=== PATIENT | male | born 1980 | race Caucasian/White ===

== ENCOUNTER 2019-09-24 09:30 | Emergency (ER) | payer OTHER, SELFPAY ==
[2019-09-24 09:30] VITALS: BP 179/101; PULSE 96; RESP 18; TEMP 36.4; O2SAT 97; BMI 41.7
--- NOTE | 2019-09-24 09:47 | ED.VIS.GEN ---
History of Present Illness Chief Complaint: GI Bleed Informant: Patient Narrative: Patient presents to the emergency department for 24 hours of bright red blood with bowel movements. He states that the bowel movements have been firm. He has not had to strain. He states he has had a total of 5 each time has had bright red blood. He denies any abdominal pain or rectal pain. No rectal fullness. No history of diverticular disease are hemorrhoidal disease. He denies any medications. He has a known abdominal ventral hernia. No prior colonoscopy. Past Medical History - Allergies and Home Meds Allergies/Adverse Reactions: Allergies No Known Allergies Allergy (Verified 09/24/19 09:32) Primary Care Physician: Care Physician,No Primary [Primary Care Provider] - Smoking Status: Never smoker Review of Systems General: Denies: Chills, Fever, Sweats Eyes: Denies: Visual changes - bilaterally, Diplopia ENT: Denies: Rhinorrhea, Sore throat Cardiovascular: Denies: Chest pain, Palpitations Respiratory: Denies: Dyspnea, Cough, Dyspnea on exertion Gastrointestinal: Reports: Hematochezia. Denies: Abdominal pain, Nausea, Vomiting, Diarrhea, Constipation, Melena Genitourinary: Denies: Dysuria, Hematuria, Frequency Musculoskeletal: Denies: Back pain, Extremity Pain Skin: Denies: Rash, Wounds Neurological: Denies: Headache, Weakness, Numbness Physical Exam Vital Signs/Narrative: Vital Signs Temp Pulse Resp BP Pulse Ox 09/24/19 09:30 97.5 F L 96 18 179/101 H 97 Inital Vital Signs reviewed: Yes General: Well nourished, Well developed, No Acute Distress Head: Normocephalic, Atraumatic Eyes: Perrl, EOMI ENT: Moist mucous membranes, No rhinorrhea Neck: Supple, Nontender Cardiovascular: Regular rate, Regular rhythm, No murmurs Respiratory: No distress, CTA bilaterally, Chest nontender Abdomen: Soft, Nontender, Nondistended, Normal bowel sounds, Ventral hernia - No evidence of incarceration or strangulation Rectal: Nontender, - - There is no evidence of hemorrhoidal disease. No blood on the glove. No rectal fissure seen. Back: Nontender, Normal Inspection Extremities: Nontender, No edema Skin: Normal color, No rash Neurological: Alert, Oriented x3, Cranial nerves II-XII grossly intact, Normal Strength, Normal Sensation Psychological: Normal affect, Normal Mood Diagnostic/Tx/Re-eval - Medical Decision Making Patient's hemoglobin is stable at 15.7. He has no near syncopal or orthostatic symptoms. Lactic acid is normal. This is most likely a diverticular or internal hemorrhoidal bleed. I recommend a stool softener and avoidance of long-term sitting. He was advised he should have a colonoscopy but given the current situation that would be placed on hold. I will refer him to general surgery and they can assist him with his ventral hernia as well as the colonoscopy. Return if worsening or concerns and patient notes understanding. Patient is being discharged under pandemic conditions under declared global, national and state disaster activation, with limited medical resources, patient, community understands this. Results discussed in layman terms to patient satisfaction all questions answered in layman's terms. Patient understands importance of follow-up care as directed. The patient has been instructed to return to the ED immediately if new symptoms, problems, or questions occur. We mutually agreed with the plan of disposition. The patient understands that they may call or return any questions or concerns at any time. ED Disposition - Plan for ED Patient: Disposition: Home or Assisted Living Diagnosis: Lower GI bleed Instructions: ED Hematochezia Stable Referrals: Melchor Lopez MD [STAFF PHYSICIAN] - (call to arrange follow up ) Additional Instructions: Be advised that given the global pandemic and by order of the governor in the [place] Department of [employer] elective procedures such as elective hernia repair and elective colonoscopies are currently on hold. Please observe yourself and if you are worsening or have any concerns please return to the emergency department.
[2019-09-24 10:09] LABS: Absolute Lymphocyte Count 1.88 X10^3/uL (0.83-4.51); Absolute Neutrophil Count 6.4 X10^3/uL (2.0-7.7); Basophil# 0.05 X10^3/uL; Basophil% 0.6 % (0-1); Eosinophil# 0.18 X10^3/uL; Hematocrit 45.4 % (40-54); Hemoglobin 15.7 g/dL (13.0-16.5); Lymphocyte # 1.88 X10^3/ul (4.0); Lymphocyte % 20.8 % (19-41); Mean Corp Hgb Conc 34.6 g/dL (32-36); Mean Corpuscular Hgb 30.1 pg (27.0-32.0); Mean Corpuscular Volume 87.1 fL (80-94); Mean Platelet Vol. 10.1 fl (6.2-12.0); Monocyte# 0.55 X10^3/uL; Monocyte% 6.1 % (0-10); NRBC Flagged by Analyzer 0 % (0-5); Neutrophil # 6.35 X10^3/uL (2.7-7.7); Neutrophil % 69.9 % (47-70); Platelet Count 201 K/mm3 (150-450); RBC Distribution Width CV 12.8 % (11.6-14.6); RBC Distribution Width SD 40.5 fl (35.1-43.9); Red Blood Count 5.21 M/mm3 (4.6-6.2); White Blood Count 9.1 K/mm3 (4.4-11.0)
[2019-09-24 10:15] LABS: Prothrombin Time (Protime)PT. 12.3 SECONDS (11.7-14.9)
[2019-09-24 10:16] LABS: Partial Thromboplast Time 26.3 Seconds (24.1-36.2)
[2019-09-24 10:23] LABS: AST(SGOT) 24 U/L (15-37); Alanine Aminotransfer ALT/SGPT 64 U/L (16-61); Albumin, Serum 3.7 g/dL (3.2-5.0); Alkaline Phosphatase 69 U/L (45-117); Anion Gap 3 (5-15); BUN 16 mg/dL (7-18); BUN/Creat Ratio 13.8 RATIO (10-20); Calcium,Total 9.1 mg/dL (8.5-10.1); Chloride 110 mmol/L (98-107); Creatinine, Serum 1.16 mg/dL (0.70-1.30); EST Glomerular Filtration Rate 74 mL/min (>60); Est Glom Filt Rate - Afr Amer 89 mL/min (>60); Estimated Creatinine Clearance 89.26 ml/min; Globulin 3.7 g/dL (2.2-4.2); Glucose 131 mg/dL (74-106); Potassium 3.8 mmol/L (3.5-5.1); Protein, Total 7.4 g/dL (6.4-8.2); Sodium Level 141 mmol/L (136-145)
[2019-09-24 10:28] LABS: Lactic Acid 1.3 mmol/L (0.4-1.9)
[2019-09-24 10:39] VITALS: BP 139/80; PULSE 82; RESP 18; O2SAT 98
== END 2019-09-24 10:49 | disposition home or self-care (01) ==
PROVIDERS: Emergency Provider Emergency Medicine
DX: K92.2 Gastrointestinal hemorrhage, unspecified (principal)
CPT/HCPCS: 80053; 83605; 85025; 85610; 85730; 99283; A4216

== ENCOUNTER 2021-01-10 11:58 | Emergency (ER) | payer OTHER, SELFPAY ==
[2019-09-26 14:06] VITALS: BMI 41.7
[2021-01-10 11:59] VITALS: BP 147/98; PULSE 105; RESP 18; TEMP 37; O2SAT 94; BMI 39.3
[2021-01-10 12:04] VITALS: BP 147/98; PULSE 105; RESP 18; TEMP 37; O2SAT 94
[2021-01-10 12:54] LABS: Absolute Lymphocyte Count 1.28 X10^3/uL (0.83-4.51); Absolute Neutrophil Count 7.4 X10^3/uL (2.0-7.7); Basophil# 0.04 X10^3/uL; Basophil% 0.4 % (0-1); Eosinophil# 0.01 X10^3/uL; Eosinophils% 0.1 % (0-5); Hematocrit 45.6 % (40-54); Hemoglobin 15.3 g/dL (13.0-16.5); Lymphocyte # 1.28 X10^3/ul (0.83-4.51); Lymphocyte % 13.6 % (19-41); Mean Corp Hgb Conc 33.6 g/dL (32-36); Mean Corpuscular Hgb 29.4 pg (27.0-32.0); Mean Corpuscular Volume 87.5 fL (80-94); Mean Platelet Vol. 9.9 fl (6.2-12.0); Monocyte# 0.67 X10^3/uL; Monocyte% 7.1 % (0-10); NRBC Flagged by Analyzer 0 % (0-5); Neutrophil # 7.38 X10^3/uL (2.7-7.7); Neutrophil % 78.5 % (47-70); Platelet Count 172 K/mm3 (150-450); RBC Distribution Width CV 12.6 % (11.6-14.6); RBC Distribution Width SD 40.7 fl (35.1-43.9); Red Blood Count 5.21 M/mm3 (4.6-6.2); White Blood Count 9.4 K/mm3 (4.4-11.0)
[2021-01-10 13:07] LABS: Anion Gap 7 (5-15); BUN 11 mg/dL (7-18); BUN/Creat Ratio 8.8 RATIO (10-20); Calcium,Total 8.5 mg/dL (8.5-10.1); Chloride 105 mmol/L (98-107); Creatinine, Serum 1.25 mg/dL (0.70-1.30); EST Glomerular Filtration Rate 67 mL/min (>60); Est Glom Filt Rate - Afr Amer 81 mL/min (>60); Estimated Creatinine Clearance 81.99 ml/min; Glucose 115 mg/dL (74-106); Potassium 3.8 mmol/L (3.5-5.1); Sodium Level 135 mmol/L (136-145)
[2021-01-10] MEDS: Smz/Tmp Ds Tablet 1 TABLET PO (14:20)
[2021-01-10] MEDS: Cephalexin 250 MG Capsule 500 MG PO (14:20)
--- NOTE | 2021-01-10 15:06 | EX.ED.DYSGE1 ---
HPI History of Present Illness Chief Complaint: Cellulitis Informant: patient Onset/Context/Timing Onset: Yesterday Context: Gradual Onset Current Severity: Moderate Maximum Severity: Moderate Narrative Narrative: Patient presents with redness to the right lower extremity. He noted redness yesterday morning when he woke. Redness is now spread throughout the lower leg. He denies any known injury or bites. He does have a small open wound to the Achilles area where his shoe was rubbing. This particular area is not irritated. Patient does report a fever at home up to 103.8. He denies fever, congestion, cough. Patient denies leg pain. PFSH PFSH no medical history Home Medications cephalexin 500 mg PO Q6 #40 cap 01/10/21 [Rx Last Taken Unknown] sulfamethoxazole-trimethoprim [Bactrim DS] 1 tab PO BID #20 tab 01/10/21 [Rx Last Taken Unknown] Allergy/AdvReac Type Severity Reaction Status Date / Time No Known Allergies Allergy Verified 01/10/21 11:58 Family History Mother Breast cancer Diabetes Father Diabetes Surgical History H/O hernia repair Social History Smoking Status: Never smoker alcohol intake: current alcohol intake frequency: a few times a month ROS ROS ED Constitutional Constitutional ED: Reports fever(s); Denies chills Eyes Eyes: Denies change in vision ENT ENT ED: Denies sore throat Cardiovascular Cardiovascular: Denies chest pain Respiratory/Chest Respiratory/Chest: Denies cough or dyspnea Gastrointestinal Gastrointestinal: Denies abdominal pain, diarrhea, nausea or vomiting Genitourinary Genitourinary ED: Denies dysuria Musculoskeletal Musculoskeletal: Denies back pain Integumentary Reports rash Neurologic Neurologic: Denies headache(s) or weakness Psychiatric Psychiatric: Denies anxiety or depression Endocrine Endocrinology: Denies polydipsia or polyuria Allergic/Immunologic Allergic/Immunologic ED: Denies urticaria EXAM Physical Exam Const Vital Signs: 01/10/21 11:59 01/10/21 12:04 01/10/21 15:21 Temperature 98.6 F 98.6 F Temperature Source Oral Oral Pulse Rate 105 H 105 H 90 Respiratory Rate 18 18 16 Blood Pressure 147/98 H 147/98 H 116/72 Blood Pressure Mean 114 114 Pulse Ox 94 94 96 Oxygen Delivery Method Room Air Room Air Positive well nourished and well developed General Appearance ED: well developed HEENT Reports normocephalic and head/scalp atraumatic Eyes PERRL and EOMs intact bilaterally Neck supple Chest Wall inspection of chest normal and palpation of chest normal Resp normal respiratory effort and clear to auscultation bilaterally Cardio regular rate and regular rhythm GI normal to inspection, nondistended, normoactive bowel sounds Palpation: soft Extremity Extremity Narrative: Erythema to the right hines and calf. Skin is warm to the touch consistent with cellulitis. Small scabbed area noted over the Achilles. No open wounds or drainage at this time. No calf tenderness or edema. Strong distal pulses. Neuro oriented x3 and no sensory deficits noted Sensorium / Orientation: alert Motor Exam: strength 5/5 throughout Psych mental status grossly normal MDM MDM MDM Narrative Medical decision making narrative: Labs and blood cultures are obtained. Lab Data Attestation: I reviewed the patient's lab results. Labs: Laboratory Results - last 24 hr 01/10/21 01/10/21 12:45 12:45 WBC 9.4 RBC 5.21 Hgb 15.3 Hct 45.6 MCV 87.5 MCH 29.4 MCHC 33.6 RDW Std Deviation 40.7 RDW Coeff of Zach 12.6 Plt Count 172 MPV 9.9 Immature Gran % (Auto) 0.300 Neut % (Auto) 78.5 H Lymph % (Auto) 13.6 L [place] % (Auto) 7.1 Eos % (Auto) 0.1 Baso % (Auto) 0.4 Absolute Neuts (auto) 7.4 Absolute Lymphs (auto) 1.28 Nucleated RBC % 0 Sodium 135 L Potassium 3.8 Chloride 105 Carbon Dioxide 23.0 Anion Gap 7 BUN 11 Creatinine 1.25 Estim Creat Clear Calc 81.99 Est GFR (MDRD) Af Amer 81 Est GFR (MDRD) Non-Af 67 BUN/Creatinine Ratio 8.8 L Glucose 115 H Calcium 8.5 Treatment and Re-Evaluation Comments:: Blood work at this time is unremarkable with a normal white count. Patient be started on Bactrim and Keflex. Area of erythema is outlined. Return instructions are provided. Discharge Plan Triage Chief Complaint: Cellulitis ED Provider: Ramya Rodrigues Dx/Rx/DC Orders Clinical Impression: Cellulitis Instructions: ED Cellulitis Prescriptions: New sulfamethoxazole-trimethoprim [Bactrim DS] 800-160 mg tablet 1 tab PO BID Qty: 20 RF: 0 cephalexin 500 mg capsule 500 mg PO Q6 Qty: 40 RF: 0 Primary Care Provider: Chan Bird Referrals: Chan Bird MD [Primary Care Provider] - 1 Week Disposition Disposition: Home, Self Care Discharge Date/Time: 01/10/21 15:24
[2021-01-10 15:21] VITALS: BP 116/72; PULSE 90; RESP 16; O2SAT 96
--- NOTE | 2021-01-10 15:23 | ED.RN ---
area of erythema on right lower leg marked with skin marker by this rn.
== END 2021-01-10 15:24 | disposition home or self-care (01) ==
PROVIDERS: Emergency Provider Emergency Medicine; PCP Orthopaedic Surgery
DX: L03.115 Cellulitis of right lower limb (principal)
CPT/HCPCS: 36415; 80048; 85025; 87040; 99284; A4216

== ENCOUNTER 2021-01-11 11:50 | Emergency (ER) | payer OTHER, SELFPAY ==
[2021-01-10 11:59] VITALS: BMI 39.3
[2021-01-11 11:51] VITALS: BP 125/84; PULSE 99; RESP 18; TEMP 36.3; O2SAT 96; BMI 39.4
[2021-01-11 12:27] VITALS: BP 125/84; PULSE 99; RESP 18; TEMP 36.3; O2SAT 96
--- NOTE | 2021-01-11 12:35 | EDS_ITS ---
HPI History of Present Illness Chief Complaint: Cellulitis Informant: patient Onset/Context/Timing Onset: Days (3) Context: Gradual Onset Timing: Continuous Quality: Burning, throbbing Location: Right lower leg Worsened by: Nothing Relieved by: Nothing Narrative Narrative: Patient presents with cellulitis to his right leg that has been getting worse over the past 3 days. Patient was seen here yesterday and started on antibiotics. Patient states that they reza a line along the edge of the cellulitis. Patient states he was told to return if it progresses outside of the line. Patient states that it is starting to progress outside of the line today. Patient denies any fevers or chills. Patient denies any paresthesias or weakness. Patient denies any discharge or drainage. PFSH PFSH no medical history Home Medications cephalexin 500 mg PO Q6 #40 cap 01/10/21 [Rx Last Taken Unknown] sulfamethoxazole-trimethoprim [Bactrim DS] 1 tab PO BID #20 tab 01/10/21 [Rx Last Taken Unknown] Allergy/AdvReac Type Severity Reaction Status Date / Time No Known Allergies Allergy Verified 01/11/21 12:26 Family History Mother Breast cancer Diabetes Father Diabetes Surgical History H/O hernia repair Social History Smoking Status: Never smoker alcohol intake: current alcohol intake frequency: a few times a month ROS ROS ED Constitutional Constitutional ED: Denies chills or fever(s) Eyes Eyes: Denies blurry vision or change in vision ENT ENT ED: Denies rhinorrhea or sore throat Cardiovascular Cardiovascular: Denies chest pain or palpitations Respiratory/Chest Respiratory/Chest: Reports cough; Denies dyspnea Gastrointestinal Gastrointestinal: Denies nausea or vomiting Genitourinary Genitourinary ED: Denies dysuria or hematuria Musculoskeletal Musculoskeletal: Reports back pain; Denies neck pain Integumentary Reports rash; Denies abscess Neurologic Neurologic: Denies headache(s) or weakness Allergic/Immunologic Allergic/Immunologic ED: Denies mouth swelling or urticaria EXAM Physical Exam Const Vital Signs: 01/11/21 11:51 01/11/21 12:27 01/11/21 14:00 Temperature 97.3 F L 97.3 F L 97.5 F L Temperature Source Temporal Temporal Temporal Pulse Rate 99 99 85 Respiratory Rate 18 18 16 Blood Pressure 125/84 H 125/84 H 147/97 H Blood Pressure Mean 97 97 113 Pulse Ox 96 96 98 Oxygen Delivery Method Room Air Room Air Room Air Positive well nourished and well developed General Appearance ED: well developed HEENT Reports moist mucous membranes Neck supple and no JVD Extremity Extremity Narrative: There is warmth, mild tenderness, and erythema over the anterior aspect of the right lower leg. There is no calf tenderness. There is no abscess formation. There are no vesicles or pustules noted. There is no discharge or drainage. There is full range of motion of the right knee and right ankle. Sensation was intact to light touch in the lower extremities bilat erally. Pedal pulses are equal bilaterally. Neuro oriented x3, CN's II-XII intact bilaterally and no sensory deficits noted Sensorium / Orientation: alert Motor Exam: strength 5/5 throughout MDM MDM MDM Narrative Medical decision making narrative: Patient was given a dose of Unasyn here. CBC and comprehensive metabolic profile were within normal limits. Lactate was normal. Patient is feeling better on reevaluation. Patient was instructed to continue his antibiotics as prescribed. Patient was instructed to follow-up with his primary care physician in 3 to 5 days. Patient understood and was agreeable with the plan. All questions were answered. Lab Data Attestation: I reviewed the patient's lab results. Labs: Laboratory Results - last 24 hr 01/11/21 01/11/21 01/11/21 13:17 13:17 13:17 WBC 7.9 RBC 5.18 Hgb 15.5 Hct 45.9 MCV 88.6 MCH 29.9 MCHC 33.8 RDW Std Deviation 41.7 RDW Coeff of Zach 12.8 Plt Count 193 MPV 10.7 Immature Gran % (Auto) 0.500 Neut % (Auto) 70.2 H Lymph % (Auto) 18.4 L [place] % (Auto) 10.1 H Eos % (Auto) 0.4 Baso % (Auto) 0.4 Absolute Neuts (auto) 5.6 Absolute Lymphs (auto) 1.46 Nucleated RBC % 0 Sodium 137 Potassium 4.0 Chloride 106 Carbon Dioxide 24.0 Anion Gap 7 BUN 19 H Creatinine 1.37 H Estim Creat Clear Calc 74.81 Est GFR (MDRD) Af Amer 73 Est GFR (MDRD) Non-Af 60 BUN/Creatinine Ratio 13.9 Glucose 96 Lactic Acid 1.0 Calcium 8.9 Total Bilirubin 0.30 AST 56 H ALT 93 H Alkaline Phosphatase 57 Total Protein 7.7 Albumin 3.3 Globulin 4.4 H Albumin/Globulin Ratio 0.8 L Discharge Plan Triage Chief Complaint: Cellulitis ED Provider: Torito Cole Dx/Rx/DC Orders Clinical Impression: Cellulitis Instructions: ED Cellulitis Prescriptions: No Action sulfamethoxazole-trimethoprim [Bactrim DS] 800-160 mg tablet 1 tab PO BID Qty: 20 RF: 0 cephalexin 500 mg capsule 500 mg PO Q6 Qty: 40 RF: 0 Primary Care Provider: Chan Bird Referrals: Chan Bird MD [Primary Care Provider] - 3-5 Days Disposition Disposition: Home, Self Care
[2021-01-11 13:33] LABS: Absolute Lymphocyte Count 1.46 X10^3/uL (0.83-4.51); Absolute Neutrophil Count 5.6 X10^3/uL (2.0-7.7); Basophil# 0.03 X10^3/uL; Basophil% 0.4 % (0-1); Eosinophil# 0.03 X10^3/uL; Eosinophils% 0.4 % (0-5); Hematocrit 45.9 % (40-54); Hemoglobin 15.5 g/dL (13.0-16.5); Lymphocyte # 1.46 X10^3/ul (0.83-4.51); Lymphocyte % 18.4 % (19-41); Mean Corp Hgb Conc 33.8 g/dL (32-36); Mean Corpuscular Hgb 29.9 pg (27.0-32.0); Mean Corpuscular Volume 88.6 fL (80-94); Mean Platelet Vol. 10.7 fl (6.2-12.0); Monocyte% 10.1 % (0-10); NRBC Flagged by Analyzer 0 % (0-5); Neutrophil # 5.58 X10^3/uL (2.7-7.7); Neutrophil % 70.2 % (47-70); Platelet Count 193 K/mm3 (150-450); RBC Distribution Width CV 12.8 % (11.6-14.6); RBC Distribution Width SD 41.7 fl (35.1-43.9); Red Blood Count 5.18 M/mm3 (4.6-6.2); White Blood Count 7.9 K/mm3 (4.4-11.0)
[2021-01-11 13:48] LABS: ALB/GLOB Ratio 0.8 RATIO (0.9-2.4); AST(SGOT) 56 U/L (15-37); Alanine Aminotransfer ALT/SGPT 93 U/L (16-61); Albumin, Serum 3.3 g/dL (3.2-5.0); Alkaline Phosphatase 57 U/L (45-117); Anion Gap 7 (5-15); BUN 19 mg/dL (7-18); BUN/Creat Ratio 13.9 RATIO (10-20); Calcium,Total 8.9 mg/dL (8.5-10.1); Chloride 106 mmol/L (98-107); Creatinine, Serum 1.37 mg/dL (0.70-1.30); EST Glomerular Filtration Rate 60 mL/min (>60); Est Glom Filt Rate - Afr Amer 73 mL/min (>60); Estimated Creatinine Clearance 74.81 ml/min; Globulin 4.4 g/dL (2.2-4.2); Glucose 96 mg/dL (74-106); Protein, Total 7.7 g/dL (6.4-8.2); Sodium Level 137 mmol/L (136-145)
[2021-01-11 14:00] VITALS: BP 147/97; PULSE 85; RESP 16; TEMP 36.4; O2SAT 98
[2021-01-11 15:49] VITALS: BP 155/97; PULSE 81; RESP 17; O2SAT 100
== END 2021-01-11 15:50 | disposition home or self-care (01) ==
PROVIDERS: Emergency Provider Emergency Medicine; PCP Orthopaedic Surgery
DX: L03.115 Cellulitis of right lower limb (principal)
CPT/HCPCS: 80053; 83605; 85025; 96365; 99283; J7050; A4216; J0295

== ENCOUNTER 2022-04-24 07:22 | Emergency (ER) | payer OTHER, SELFPAY ==
[2022-04-24 07:23] VITALS: BP 154/89; PULSE 86; RESP 18; TEMP 35.5; O2SAT 96; BMI 40.4
--- NOTE | 2022-04-24 07:45 | ED.VIS.LOWEX ---
HPI History of Present Illness Chief Complaint: Wound Narrative Narrative: 42-year-old male presenting with concern for cellulitis on the right tibial region. He has a small nidus on the upper tibia and surrounding cellulitic change which is not circumferential. He states its mildly painful. No systemic signs or symptoms. He states he had cellulitis on the left leg previously to let it go too long and had to come in for IV antibiotics in the ER. He says he was ultimately discharged home with antibiotics but does not know what he was on. He states he recovered from this. No known trauma. PFSH PFSH Home Medications cephalexin 500 mg capsule 500 mg PO Q6 #40 caps 01/10/21 [Rx Last Taken Unknown] sulfamethoxazole 800 mg-trimethoprim 160 mg tablet (Bactrim DS) 1 tab PO BID #20 tabs 01/10/21 [Rx Last Taken Unknown] cephalexin 500 mg capsule 500 mg PO Q6 #40 caps 04/24/22 [Rx Last Taken Unknown] sulfamethoxazole 800 mg-trimethoprim 160 mg tablet (Bactrim DS) 1 tab PO BID #20 tabs 04/24/22 [Rx Last Taken Unknown] Allergy/AdvReac Type Severity Reaction Status Date / Time No Known Allergies Allergy Verified 04/24/22 07:25 Family History Mother Breast cancer Diabetes Father Diabetes Surgical History H/O hernia repair Social History Smoking Status: Never smoker alcohol intake: current alcohol intake frequency: a few times a month ROS ROS ED Constitutional Constitutional ED: Denies chills Eyes Eyes: Denies change in vision or diplopia ENT ENT ED: Denies rhinorrhea or sore throat Cardiovascular Cardiovascular: Denies chest pain or palpitations Respiratory/Chest Respiratory/Chest: Denies cough or dyspnea Gastrointestinal Gastrointestinal: Denies abdominal pain or constipation Genitourinary Genitourinary ED: Denies dysuria or hematuria Musculoskeletal Musculoskeletal: Denies arthralgias or back pain Integumentary Denies abscess Neurologic Neurologic: Denies headache(s) or paresthesias Psychiatric Psychiatric: Denies anxiety or depression EXAM Physical Exam Const Vital Signs: 11/06/22 07:23 Temperature 96 F L Temperature Source Temporal Pulse Rate 86 Respiratory Rate 18 Blood Pressure 154/89 H Blood Pressure Mean 110 Pulse Ox 96 Oxygen Delivery Method Room Air Positive well nourished General Appearance ED: NAD HEENT Reports moist mucous membranes normocephalic Resp Effort and Inspection: pain with movement Cardio regular rate and regular rhythm Extremity Extremity Narrative: 3 cm circular area with punctate opening right proximal tibia. There is no fluctuance to this. There is surrounding erythema from the proximal tibia to the distal tibia and the anterior portions of the bilateral lower leg. There is no circumferential cellulitis. No crepitance. Compartments are soft. No cords palpated. Neuro oriented x3 Psych mental status grossly normal Skin Skin Narrative: As documented above MDM MDM MDM Narrative Medical decision making narrative: Patient with cellulitis on the right tibia. No crepitance. Nidus of infection seems to be an abrasion in the proximal tibial region which does not have any fluctuance to it. Patient does report that it drained a little bit earlier. I do believe he needs incision and drainage. Patient was unsure what antibiotic he was on before but in the medical record it shows that he was on Bactrim and Keflex and this was all started while here. He is given the first doses in the ER. He is given prescription for this. He can return precautions. Impression: 1. Right tibial cellulitis Discharge Plan Triage Chief Complaint: Wound ED Provider: Brannon Freire Dx/Rx/DC Orders Clinical Impression: Cellulitis Instructions: Cellulitis Dc Prescriptions: New sulfamethoxazole-trimethoprim [Bactrim DS] 800-160 mg tablet 1 tab PO BID Qty: 20 0RF cephalexin 500 mg capsule 500 mg PO Q6 Qty: 40 0RF No Action sulfamethoxazole-trimethoprim [Bactrim DS] 800-160 mg tablet 1 tab PO BID Qty: 20 0RF cephalexin 500 mg capsule 500 mg PO Q6 Qty: 40 0RF Primary Care Provider: Chan Bird Referrals: Chan Bird MD [Primary Care Provider] - Disposition Disposition: Home, Self Care
[2022-04-24] MEDS: Cephalexin 250 MG Capsule 500 MG PO (07:53)
[2022-04-24] MEDS: Smz/Tmp Ds Tablet 1 TABLET PO (07:53)
== END 2022-04-24 08:06 | disposition home or self-care (01) ==
LOC: ED 08:04
PROVIDERS: Emergency Provider Student in an Organized Health Care Education/Training Program; PCP Orthopaedic Surgery; Visit Provider Student in an Organized Health Care Education/Training Program
DX: L03.115 Cellulitis of right lower limb (principal)
CPT/HCPCS: 99283

== ENCOUNTER 2022-04-28 10:17 | Observation (INO) | payer OTHER, SELFPAY ==
[2022-04-28 10:18] VITALS: BP 164/98; PULSE 85; RESP 16; TEMP 36.4; O2SAT 95; BMI 41.1
--- NOTE | 2022-04-28 10:40 | EX.ED.DYSGE1 ---
HPI History of Present Illness Chief Complaint: Cellulitis Informant: patient Narrative Narrative: Sent in by PCP for worsening cellulitis right lower extremity. Seen 5 days ago in the ED states wound and upper aspect of lower leg started on Monday. There was some spontaneous drainage. Placed on Bactrim and Keflex. He follow-up with PCP today symptoms worsening. He has been having subjective fevers. Denies diabetes history is had cellulitis left leg a year ago was treated and improved. He does not take any chronic daily medications. Prior similar symptoms: Yes PFSH PFSH Home Medications sulfamethoxazole 800 mg-trimethoprim 160 mg tablet (Bactrim DS) 1 tab PO BID #20 tabs 01/10/21 [Rx Last Taken 04/28/22] acetaminophen 325 mg tablet (Tylenol) 650 mg PO Q4H PRN Pain 04/28/22 [History Last Taken 04/28/22] cephalexin 500 mg capsule 500 mg PO Q6H 04/28/22 [History Last Taken 04/28/22] Allergy/AdvReac Type Severity Reaction Status Date / Time No Known Allergies Allergy Verified 04/24/22 07:25 Family History Mother Breast cancer Diabetes Father Diabetes Surgical History H/O hernia repair Social History Smoking Status: Never smoker alcohol intake: current alcohol intake frequency: a few times a month [facility] ED Constitutional Constitutional ED: Denies chills, fever(s) or sweats Eyes Eyes: Denies change in vision ENT ENT ED: Denies dysphagia or sore throat Cardiovascular Cardiovascular: Denies chest pain, leg edema, palpitations or racing heartbeat Respiratory/Chest Respiratory/Chest: Denies cough, dyspnea or dyspnea on exertion Gastrointestinal Gastrointestinal: Denies abdominal pain, diarrhea, nausea or vomiting Genitourinary Genitourinary ED: Denies dysuria, hematuria or urinary frequency Musculoskeletal Musculoskeletal: Denies back pain, extremity pain or neck pain Integumentary Reports rash and wounds Neurologic Neurologic: Denies headache(s), paresthesias or weakness EXAM Physical Exam Const Vital Signs: 04/28/22 10:18 04/28/22 12:41 04/28/22 13:14 Temperature 97.6 F L 97.6 F L 98.1 F Temperature Source Temporal Temporal Oral Pulse Rate 85 85 63 Respiratory Rate 16 16 16 Blood Pressure 164/98 H 164/98 H 156/82 H Blood Pressure Mean 120 120 106 Pulse Ox 95 95 98 Oxygen Delivery Method Room Air Room Air Room Air Positive well nourished and well developed General Appearance ED: well developed and NAD HEENT Reports moist mucous membranes normocephalic and atraumatic Eyes PERRL, EOMs intact bilaterally and conjunctivae normal General Eye ED: Yes normal appearance of both eyes Neck no lymphadenopathy and supple General: Negative for tenderness Chest Wall Chest: Negative for tenderness Resp normal respiratory effort and normal air movement Effort and Inspection: symmetric chest movement; Negative for respiratory distress Cardio regular rate, regular rhythm and no murmurs Peripheral Pulses: pulses 2+ throughout GI normal to inspection, nondistended, normoactive bowel sounds and non-tender Palpation: Negative for guarding or rebound tenderness present Back/Spine no CVA tenderness and no thoracic nor lumbar tenderness Extremity Extremity Narrative: Right lower extremity: Upper anterior leg a 4 cm raised wound, abrasions, clear drainage. There was erythema down the anterior aspect of the whole leg. Does not cross the joints. There was a previous outlining that spreads to the outside of this. There is no streaking up the upper leg. There is no calf pain. There is no medial thigh pain. Pulses were intact distally. General Extremety ED: Yes edema and tenderness General Extremity: edema Neuro oriented x3, CN's II-XII intact bilaterally and no sensory deficits noted Sensorium / Orientation: awake and alert Skin Skin Narrative: See above MDM MDM MDM Narrative Medical decision making narrative: Patient failing outpatient therapy worsening erythema from outline. He is having fevers since being on antibiotics. Sepsis labs were ordered. The lef wound was incised and drained and cultures obtained from the wound. He is covered with Zosyn and vancomycin. Prior history of MRSA. Laboratory studies White count 7.4 creatinine 1.24. His elevated inflammatory markers with CRP 50 ESR 27. Lactic acid is normal. Two-view x-ray right tib-fib also ordered for evaluation. This was reviewed by myself and read by radiology noting soft tissue swelling. No soft tissue gas noted. Patient without calf pain or medial thigh tenderness for any concerns of DVT. I spoke with hospitalist Dr. manzano for admission. Lab Data Labs: Laboratory Results - last 24 hr 04/28/22 04/28/22 04/28/22 10:50 10:50 10:50 WBC 7.4 RBC 4.69 Hgb 14.1 Hct 41.7 MCV 88.9 MCH 30.1 MCHC 33.8 RDW Std Deviation 41.5 RDW Coeff of Zach 12.8 Plt Count 233 MPV 10.1 Immature Gran % (Auto) 0.400 Neut % (Auto) 71.5 H Lymph % (Auto) 18.0 L [place] % (Auto) 7.1 Eos % (Auto) 2.3 Baso % (Auto) 0.7 Absolute Neuts (auto) 5.3 Absolute Lymphs (auto) 1.34 Nucleated RBC % 0 ESR 27 H PT 13.1 INR 1.0 APTT 27.4 Sodium 142 Potassium 4.1 Chloride 108 H Carbon Dioxide 27.0 Anion Gap 7 BUN 15 Creatinine 1.24 Estim Creat Clear Calc 80.97 Est GFR (MDRD) Af Amer 81 Est GFR (MDRD) Non-Af 67 BUN/Creatinine Ratio 12.1 Glucose 97 Lactic Acid Calcium 9.1 Total Bilirubin 0.30 AST 19 ALT 36 Alkaline Phosphatase 56 C-React Prot Ext Range 50.20 H Total Protein 7.1 Albumin 3.4 Globulin 3.7 Albumin/Globulin Ratio 0.9 04/28/22 10:50 WBC RBC Hgb Hct MCV MCH MCHC RDW Std Deviation RDW Coeff of Zach Plt Count MPV Immature Gran % (Auto) Neut % (Auto) Lymph % (Auto) [place] % (Auto) Eos % (Auto) Baso % (Auto) Absolute Neuts (auto) Absolute Lymphs (auto) Nucleated RBC % ESR PT INR APTT Sodium Potassium Chloride Carbon Dioxide Anion Gap BUN Creatinine Estim Creat Clear Calc Est GFR (MDRD) Af Amer Est GFR (MDRD) Non-Af BUN/Creatinine Ratio Glucose Lactic Acid 1.1 Calcium Total Bilirubin AST ALT Alkaline Phosphatase C-React Prot Ext Range Total Protein Albumin Globulin Albumin/Globulin Ratio Radiography Diagnostic Testing: Clinical Impression(s) from Imaging Studies Tibia/Fibula X-Ray 04/28/22 11:35 IMPRESSION: Diffuse soft tissue swelling with focal nodular density in the anterior soft tissues overlying the proximal tibia. Electronically Signed: Jian Sanford MD at 12:11 EST , Discharge Plan Triage Chief Complaint: Cellulitis ED Provider: Ar Singh Dx/Rx/DC Orders Clinical Impression: Cellulitis and abscess of right lower extremity, Right leg swelling, Failure of outpatient treatment Prescriptions: No Action sulfamethoxazole-trimethoprim [Bactrim DS] 800-160 mg tablet 1 tab PO BID Qty: 20 0RF acetaminophen [Tylenol] 325 mg Tablet 650 mg PO Q4H PRN (Reason: Pain) cephalexin 500 mg capsule 500 mg PO Q6H Primary Care Provider: Chan Bird Referrals: Chan Bird MD [Primary Care Provider] - Disposition Disposition: Acute Care Hospital [facility]
[2022-04-28 11:07] LABS: Absolute Lymphocyte Count 1.34 X10^3/uL (0.83-4.51); Absolute Neutrophil Count 5.3 X10^3/uL (2.0-7.7); Basophil# 0.05 X10^3/uL; Basophil% 0.7 % (0-1); Eosinophil# 0.17 X10^3/uL; Eosinophils% 2.3 % (0-5); Hematocrit 41.7 % (40-54); Hemoglobin 14.1 g/dL (13.0-16.5); Lymphocyte # 1.34 X10^3/ul (0.83-4.51); Mean Corp Hgb Conc 33.8 g/dL (32-36); Mean Corpuscular Hgb 30.1 pg (27.0-32.0); Mean Corpuscular Volume 88.9 fL (80-94); Mean Platelet Vol. 10.1 fl (6.2-12.0); Monocyte# 0.53 X10^3/uL; Monocyte% 7.1 % (0-10); NRBC Flagged by Analyzer 0 % (0-5); Neutrophil # 5.31 X10^3/uL (2.7-7.7); Neutrophil % 71.5 % (47-70); Platelet Count 233 K/mm3 (150-450); RBC Distribution Width CV 12.8 % (11.6-14.6); RBC Distribution Width SD 41.5 fl (35.1-43.9); Red Blood Count 4.69 M/mm3 (4.6-6.2); White Blood Count 7.4 K/mm3 (4.4-11.0)
[2022-04-28 11:09] LABS: Prothrombin Time (Protime)PT. 13.1 SECONDS (11.7-14.9)
[2022-04-28 11:10] LABS: Partial Thromboplast Time 27.4 Seconds (24.1-36.2)
[2022-04-28 11:14] LABS: Erythrocyte Sedimentation Rate 27 mm/hr (0-20)
[2022-04-28 11:17] LABS: ALB/GLOB Ratio 0.9 RATIO (0.9-2.4); AST(SGOT) 19 U/L (15-37); Alanine Aminotransfer ALT/SGPT 36 U/L (16-61); Albumin, Serum 3.4 g/dL (3.2-5.0); Alkaline Phosphatase 56 U/L (45-117); Anion Gap 7 (5-15); BUN 15 mg/dL (7-18); BUN/Creat Ratio 12.1 RATIO (10-20); Calcium,Total 9.1 mg/dL (8.5-10.1); Chloride 108 mmol/L (98-107); Creatinine, Serum 1.24 mg/dL (0.70-1.30); EST Glomerular Filtration Rate 67 mL/min (>60); Est Glom Filt Rate - Afr Amer 81 mL/min (>60); Estimated Creatinine Clearance 80.97 ml/min; Globulin 3.7 g/dL (2.2-4.2); Glucose 97 mg/dL (74-106); Potassium 4.1 mmol/L (3.5-5.1); Protein, Total 7.1 g/dL (6.4-8.2); Sodium Level 142 mmol/L (136-145)
[2022-04-28 11:31] LABS: Lactic Acid 1.1 mmol/L (0.4-1.9)
--- NOTE | 2022-04-28 11:35 | RAD_ITS ---
STUDY: X-RAY - RIGHT TIBIA AND FIBULA REASON FOR EXAM: Male, 42 years old. Infection. Soft tissue swelling and erythema. TECHNIQUE: 4 view(s) of the tibia and fibula were obtained. COMPARISON: None. FINDINGS: Normal visualized tibia. Normal visualized fibula. Diffuse soft tissue edema. Focal nodular appearance in the soft tissues overlying the proximal anterior tibia. RAD/Tibia & Fibula 2 Views IMPRESSION: Diffuse soft tissue swelling with focal nodular density in the anterior soft tissues overlying the proximal tibia. Electronically Signed: Jian Sanford MD at 12:11 EST ,
[2022-04-28] MEDS: Lidocaine 1% (20 ml mdv) 20 ML Vial INFILT (11:39)
--- NOTE | 2022-04-28 12:11 | PCM.HP.STD ---
HPI - General General Date of Admission: 04/28/22 HPI Narrative KINGA GALO, is a 42 M who presents to the hospital for failure outpatient antibiotics. 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 He was evaluated in the ED and he had a little nidus that was draining at that time and so he did not have an I&D done but he was placed on Keflex and Bactrim. He states that he has been taking both medications consistently but went to his PCP because of consistent fevers and he thought the infection was getting worse so his PCP evaluated him today and recommended he come to the ER for IV antibiotics. He did have an incision and drainage in the ER and everything was sent off for culture. Vital signs are unremarkable and his white count was only 7.4 but his cellulitis has spread outside the confines of where it had been previously marked. [facility] Medical History (Updated 04/28/22 @ 14:34 by Melinda Hollingsworth) GI bleed Home Medications sulfamethoxazole 800 mg-trimethoprim 160 mg tablet (Bactrim DS) 1 tab PO BID #20 tabs 01/10/21 [Rx Last Taken 04/28/22] acetaminophen 325 mg tablet (Tylenol) 650 mg PO Q4H PRN Pain 04/28/22 [History Last Taken 04/28/22] cephalexin 500 mg capsule 500 mg PO Q6H 04/28/22 [History Last Taken 04/28/22] Allergy/AdvReac Type Severity Reaction Status Date / Time No Known Allergies Allergy Verified 04/24/22 07:25 Family History Mother Breast cancer Diabetes Father Diabetes Surgical History H/O hernia repair Social History Smoking Status: Never smoker alcohol intake: current alcohol intake frequency: a few times a month ROS Constitutional Constitutional: Reports chills and fever(s); Denies fatigue or malaise Eyes Eyes: Denies blurry vision ENT HEENT: Denies headache(s) or nasal discharge Cardiovascular Cardiovascular: Denies chest pain, dyspnea on exertion or syncope Respiratory/Chest Respiratory/Chest: Denies cough, shortness of breath at rest or shortness of breath with exertion Gastrointestinal Gastrointestinal: Denies constipation, diarrhea, nausea or vomiting Genitourinary Genitourinary: Denies dysuria Integumentary Integumentary: Reports wounds Neurologic Neurologic: Denies focal weakness, numbness or tremor(s) Psychiatric Psychiatric: Denies anxiety or depression Vital Signs Vital Signs Vital Signs: 04/28/22 10:18 Temperature 97.6 F L Temperature Source Temporal Pulse Rate 85 Respiratory Rate 16 Blood Pressure 164/98 H Blood Pressure Mean 120 Pulse Ox 95 Oxygen Delivery Method Room Air Weight Weight: 295 lb Body Mass Index (BMI) 41.1 Physical Exam Narrative General: Alert, Oriented x3, Cooperative, No apparent distress HEENT: Atraumatic, PERRLA, EOMI, Normocephalic Oral: Moist Mucosa Neck: Supple, No JVD Lungs: Clear to auscultation, Normal air movement, No rhonchi, No wheeze, No rales Cardiovascular: Regular rate, Regular Rhythm, Normal S1, Normal S2, No murmurs Abdomen: Soft, Non Tender, Non-Distended, No Hepato-splenomegaly Extremities: No edema, Capillary Refill Less than 3 Seconds Skin: Spreading area of erythema on his right tibia, status post I&D, dressing intact Musculoskeletal: No Tenderness to Palpation of Joints or Extremities Neurological: Cranial nerves II-XII grossly intact, Motor Exam 5/5 strength throughout, Sensory exam intact to light touch and pain Psych/Mental Status: Normal Affect, Appropriate Results Lab / Micro Data Result Diagrams: 04/28/22 10:50 04/28/22 10:50 Labs: Laboratory Results - last 24 hr 04/28/22 10:50: WBC 7.4, RBC 4.69, Hgb 14.1, Hct 41.7, MCV 88.9, MCH 30.1, MCHC 33.8, RDW Std Deviation 41.5, RDW Coeff of Zach 12.8, Plt Count 233, MPV 10.1, Immature Gran % (Auto) 0.400, Neut % (Auto) 71.5 H, Lymph % (Auto) 18.0 L, [place] % (Auto) 7.1, Eos % (Auto) 2.3, Baso % (Auto) 0.7, Absolute Neuts (auto) 5.3, Absolute Lymphs (auto) 1.34, Nucleated RBC % 0, ESR 27 H 04/28/22 10:50: PT 13.1, INR 1.0, APTT 27.4 04/28/22 10:50: Sodium 142, Potassium 4.1, Chloride 108 H, Carbon Dioxide 27.0, Anion Gap 7, BUN 15, Creatinine 1.24, Estim Creat Clear Calc 80.97, Est GFR (MDRD) Af Amer 81, Est GFR (MDRD) Non-Af 67, BUN/Creatinine Ratio 12.1, Glucose 97, Calcium 9.1, Total Bilirubin 0.30, AST 19, ALT 36, Alkaline Phosphatase 56, C-React Prot Ext Range 50.20 H, Total Protein 7.1, Albumin 3.4, Globulin 3.7, Albumin/Globulin Ratio 0.9 04/28/22 10:50: Lactic Acid 1.1 Radiology Impression Tibia/Fibula X-Ray 04/28/22 11:35 IMPRESSION: Diffuse soft tissue swelling with focal nodular density in the anterior soft tissues overlying the proximal tibia. Electronically Signed: Jian Sanford MD at 12:11 EST , Assessment & Plan Assessment/Plan (1) Cellulitis: PLAN: Plan 1. Cellulitis with failure of outpatient antibiotics ? He does have a history of MRSA and was placed on Bactrim and Keflex but no I&D was performed, he has been taking the antibiotics for about 5 days and infection has increased in that time. ? He did have an I&D this time in the ER with cultures pending ? Continue with vancomycin and Zosyn ? Continue with regular diet at this time electrolytes and everything appeared normal so no need for IV fluids DVT: Ambulation Charges/Coding Visit Charges Inpatient E&M: 47720 Init Hosp L2
[2022-04-28 12:41] VITALS: BP 164/98; PULSE 85; RESP 16; TEMP 36.4; O2SAT 95
[2022-04-28 13:14] VITALS: BP 156/82; PULSE 63; RESP 16; TEMP 36.7; O2SAT 98
[2022-04-28 15:55] VITALS: BMI 41.2
[2022-04-28 16:00] VITALS: BP 144/89; PULSE 59; RESP 16; TEMP 36.9; O2SAT 98
--- NOTE | 2022-04-28 16:31 | PCM.RX.CS ---
Consult Pharmacy has been consulted to manage selected antiobiotic: Vancomycin Type of Consult: New start Suspected Infection: Skin/Soft tissue Labs: Sodium 142 mmol/L (136-145) 04/28/22 10:50 Potassium 4.1 mmol/L (3.5-5.1) 04/28/22 10:50 Chloride 108 mmol/L (98-107) H 04/28/22 10:50 Carbon Dioxide 27.0 mmol/L (21.0-32.0) 04/28/22 10:50 Anion Gap 7 (5-15) 04/28/22 10:50 BUN 15 mg/dL (7-18) 04/28/22 10:50 Creatinine 1.24 mg/dL (0.70-1.30) 04/28/22 10:50 Est GFR (MDRD) Af Amer 81 mL/min (>60) 04/28/22 10:50 Est GFR (MDRD) Non-Af 67 mL/min (>60) 04/28/22 10:50 BUN/Creatinine Ratio 12.1 RATIO (10-20) 04/28/22 10:50 Glucose 97 mg/dL (74-106) 04/28/22 10:50 Microbiology: Microbiology 04/28/22 11:27 Wound - Leg, Right Gram Stain - Final Pharmacy Plan for Drug Dosing: NEW START IV VANCOMYCIN Consulting Physician: ERI Indication: CELLULITIS Goal Trough: 15-20 MG/DL SrCr: 1.24 MG/DL CrCl: 106 ML/MIN USING ADJUSTED BODY WEIGHT Comments: ER LOADING DOSE OF 2000MG GIVEN 04/28 @ 1147 Vancomycin Dose: WILL START 1500MG Q8H PER POLICY AND GET A LEVEL PRIOR TO 4TH TOTAL DOSE OF REGIMEN. Pending Level: 04/29/22 @ 1130 Pharmacy Service will continue to monitor and adjust dosing as required.
[2022-04-28 17:53] VITALS: BP 144/89; PULSE 59; RESP 16; TEMP 36.9; O2SAT 98
[2022-04-28 19:44] VITALS: BP 138/89; PULSE 65; RESP 16; TEMP 36.7; O2SAT 95
[2022-04-29 00:31] VITALS: BP 131/87; PULSE 57; RESP 18; TEMP 36.5; O2SAT 98
[2022-04-29 05:35] LABS: Absolute Lymphocyte Count 1.49 X10^3/uL (0.83-4.51); Basophil# 0.05 X10^3/uL; Basophil% 0.7 % (0-1); Eosinophil# 0.21 X10^3/uL; Eosinophils% 2.9 % (0-5); Hematocrit 44.3 % (40-54); Hemoglobin 14.8 g/dL (13.0-16.5); Lymphocyte # 1.49 X10^3/ul (0.83-4.51); Lymphocyte % 20.6 % (19-41); Mean Corp Hgb Conc 33.4 g/dL (32-36); Mean Corpuscular Volume 89.9 fL (80-94); Mean Platelet Vol. 10.3 fl (6.2-12.0); Monocyte# 0.44 X10^3/uL; Monocyte% 6.1 % (0-10); NRBC Flagged by Analyzer 0 % (0-5); Neutrophil # 4.98 X10^3/uL (2.7-7.7); Platelet Count 230 K/mm3 (150-450); RBC Distribution Width CV 12.6 % (11.6-14.6); RBC Distribution Width SD 41.5 fl (35.1-43.9); Red Blood Count 4.93 M/mm3 (4.6-6.2); White Blood Count 7.2 K/mm3 (4.4-11.0)
[2022-04-29 05:57] LABS: Anion Gap 6 (5-15); BUN 14 mg/dL (7-18); BUN/Creat Ratio 11.6 RATIO (10-20); Chloride 106 mmol/L (98-107); Creatinine, Serum 1.21 mg/dL (0.70-1.30); EST Glomerular Filtration Rate 69 mL/min (>60); Est Glom Filt Rate - Afr Amer 84 mL/min (>60); Estimated Creatinine Clearance 82.98 ml/min; Glucose 90 mg/dL (74-106); Potassium 3.9 mmol/L (3.5-5.1); Sodium Level 139 mmol/L (136-145)
[2022-04-29 07:52] VITALS: BP 138/86; PULSE 60; RESP 18; TEMP 36.4; O2SAT 98
--- NOTE | 2022-04-29 09:07 | WOUNDNOTE ---
wound photo: right leg
--- NOTE | 2022-04-29 09:23 | DCINST_ITS ---
Discharge Instructions Diet Discharge Diet: No restrictions Activity Discharge Activity: Return to Normal Activity Dressing / Incision Call your doctor if your incision/area has: Continuous Slow Oozing, Increased Pain/ Swelling, Increased Redness and Foul Smelling Discharge Call your doctor if you observe: Fever of 101 or Higher, Shortness of breath, Dizziness, Fainting spells, Swelling in the ankles, Chest pain and Increased palpitations (irregular heartbeat) Follow Up Care Test Results: Test results from this visit will be discussed in further detail at your follow- up appointment, if applicable. Discharge Plan Admission Admit Date/Time: 04/28/22 12:09 Attending Provider: Nas Avitia Primary Care Provider: Chan Bird Discharge Orders/Prescriptions Prescriptions: Continued sulfamethoxazole-trimethoprim [Bactrim DS] 800-160 mg tablet 1 tab PO BID Qty: 20 0RF acetaminophen [Tylenol] 325 mg Tablet 650 mg PO Q4H PRN (Reason: Pain) cephalexin 500 mg capsule 500 mg PO Q6H Referrals / Follow Up: Chan Bird MD [Primary Care Provider] - Within 1 Week Disposition Disposition (needs filled in before D/C Order can be placed): Home, Self Care
--- NOTE | 2022-04-29 09:24 | PCM.DC.SUM ---
Providers Date of Admission: 04/28/22 Primary Care Physician: Dr. Chan Bird MD Reason For Visit: cellulitis Diagnosis Discharge Diagnosis (1) Cellulitis: Status: Acute Code(s): L03.90 - Cellulitis, unspecified Plan 1. Cellulitis with failure of outpatient antibiotics ? He does have a history of MRSA and was placed on Bactrim and Keflex but no I&D was performed, he has been taking the antibiotics for about 5 days and infection has increased in that time. ? He did have an I&D this time in the ER with cultures pending ? Continue with vancomycin and Zosyn ? Continue with regular diet at this time electrolytes and everything appeared normal so no need for IV fluids DVT: Ambulation Medications at Discharge Home Medications sulfamethoxazole 800 mg-trimethoprim 160 mg tablet (Bactrim DS) 1 tab PO BID #20 tabs 01/10/21 acetaminophen 325 mg tablet (Tylenol) 650 mg PO Q4H PRN Pain 04/28/22 cephalexin 500 mg capsule 500 mg PO Q6H 04/28/22 Hospital Course Operations None Procedures - (I&D) Summary of Care Provided Minutes Spent on Discharge: 42 Hospital Course: Per HPI: KINGA GALO, is a 42 M who presents to the hospital for failure outpatient antibiotics.? 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 He was evaluated in the ED and he had a little nidus that was draining at that time and so he did not have an I&D done but he was placed on Keflex and Bactrim.? He states that he has been taking both medications consistently but went to his PCP because of consistent fevers and he thought the infection was getting worse so his PCP evaluated him today and recommended he come to the ER for IV antibiotics.? He did have an incision and drainage in the ER and everything was sent off for culture.? Vital signs are unremarkable and his white count was only 7.4 but his cellulitis has spread outside the confines of where it had been previously marked. Hospital Course: 1. 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 At that time there was no I&D performed but he was discharged on Keflex and Bactrim. He says that he been taking these medications for about 4 days when he noticed that the abscess was getting worse he went to his PCP who directed him to come to the ER. He did have his wound I indeed in the ER and purulent material was sent for culture. Today his wound looks much better he says that the swelling has improved significantly and the erythema has essentially resolved. I discussed with him the possibility for discharge today versus staying 1 more day for IV antibiotics however he and his girlfriend would like for him to go home today. He will receive another dose of Zosyn this afternoon as well as another dose of vancomycin. Since he has 5 days of Bactrim and Keflex at home I recommend that he complete that antibiotic course as the failure of treatment was likely secondary to the fact that he needed an I&D and not that the antibiotics were incorrect. With appropriate treatment including I&D and IV antibiotics he did improve faster than anticipated especially given how much the erythema had extended beyond the markings when he first presented to the ER. Physical Exam Narrative General: Alert, Oriented x3, Cooperative, No apparent distress HEENT: Atraumatic, PERRLA, EOMI, Normocephalic Oral: Moist Mucosa Neck: Supple, No JVD Lungs: Clear to auscultation, Normal air movement, No rhonchi, No wheeze, No rales Cardiovascular: Regular rate, Regular Rhythm, Normal S1, Normal S2, No murmurs Abdomen: Soft, Non Tender, Non-Distended, No Hepato-splenomegaly Extremities: No edema, Capillary Refill Less than 3 Seconds Skin: Area of I&D shows very little drainage some mild redness surrounding the area otherwise the erythema has greatly improved Musculoskeletal: No Tenderness to Palpation of Joints or Extremities Neurological: Cranial nerves II-XII grossly intact, Motor Exam 5/5 strength throughout, Sensory exam intact to light touch and pain Psych/Mental Status: Normal Affect, Appropriate Weight / BMI Weight Weight: 295 lb 9.6 oz Body Mass Index (BMI) 41.2 ABG / Lab / Microbiology Data Result Diagrams: 04/29/22 04:50 04/29/22 04:50 Laboratory: Laboratory Results - last 24 hr 04/28/22 10:50: WBC 7.4, RBC 4.69, Hgb 14.1, Hct 41.7, MCV 88.9, MCH 30.1, MCHC 33.8, RDW Std Deviation 41.5, RDW Coeff of Zach 12.8, Plt Count 233, MPV 10.1, Immature Gran % (Auto) 0.400, Neut % (Auto) 71.5 H, Lymph % (Auto) 18.0 L, [place] % (Auto) 7.1, Eos % (Auto) 2.3, Baso % (Auto) 0.7, Absolute Neuts (auto) 5.3, Absolute Lymphs (auto) 1.34, Nucleated RBC % 0, ESR 27 H 04/28/22 10:50: PT 13.1, INR 1.0, APTT 27.4 04/28/22 10:50: Sodium 142, Potassium 4.1, Chloride 108 H, Carbon Dioxide 27.0, Anion Gap 7, BUN 15, Creatinine 1.24, Estim Creat Clear Calc 80.97, Est GFR (MDRD) Af Amer 81, Est GFR (MDRD) Non-Af 67, BUN/Creatinine Ratio 12.1, Glucose 97, Calcium 9.1, Total Bilirubin 0.30, AST 19, ALT 36, Alkaline Phosphatase 56, C-React Prot Ext Range 50.20 H, Total Protein 7.1, Albumin 3.4, Globulin 3.7, Albumin/Globulin Ratio 0.9 04/28/22 10:50: Lactic Acid 1.1 04/29/22 04:50: WBC 7.2, RBC 4.93, Hgb 14.8, Hct 44.3, MCV 89.9, MCH 30.0, MCHC 33.4, RDW Std Deviation 41.5, RDW Coeff of Zach 12.6, Plt Count 230, MPV 10.3, Immature Gran % (Auto) 0.700, Neut % (Auto) 69.0, Lymph % (Auto) 20.6, [place] % (Auto) 6.1, Eos % (Auto) 2.9, Baso % (Auto) 0.7, Absolute Neuts (auto) 5.0, Absolute Lymphs (auto) 1.49, Nucleated RBC % 0 04/29/22 04:50: Sodium 139, Potassium 3.9, Chloride 106, Carbon Dioxide 27.0, Anion Gap 6, BUN 14, Creatinine 1.21, Estim Creat Clear Calc 82.98, Est GFR (MDRD) Af Amer 84, Est GFR (MDRD) Non-Af 69, BUN/Creatinine Ratio 11.6, Glucose 90, Calcium 9.0 Microbiology: Microbiology 04/28/22 11:27 Wound - Leg, Right Gram Stain - Final 04/28/22 11:27 Wound - Leg, Right Wound Culture - Preliminary Staphylococcus aureus Radiography Diagnostic Testing: Radiology Impression Tibia/Fibula X-Ray 04/28/22 11:35 IMPRESSION: Diffuse soft tissue swelling with focal nodular density in the anterior soft tissues overlying the proximal tibia. Electronically Signed: Jian Sanford MD at 12:11 EST , D/C Instructions Discharge Diet: No restrictions Call your doctor if your incision/area has: Continuous Slow Oozing, Increased Pain/ Swelling, Increased Redness and Foul Smelling Discharge Call your doctor if you observe: Fever of 101 or Higher, Shortness of breath, Dizziness, Fainting spells, Swelling in the ankles, Chest pain and Increased palpitations (irregular heartbeat) Meaningful Use Info Meaningful Use Diagnoses (Choose all that apply): None applicable Discharge Plan Admission Admit Date/Time: 04/28/22 12:09 Attending Provider: Nas Avitia Primary Care Provider: Chan Bird Discharge Orders/Prescriptions Prescriptions: Continued sulfamethoxazole-trimethoprim [Bactrim DS] 800-160 mg tablet 1 tab PO BID Qty: 20 0RF acetaminophen [Tylenol] 325 mg Tablet 650 mg PO Q4H PRN (Reason: Pain) cephalexin 500 mg capsule 500 mg PO Q6H Referrals / Follow Up: Chan Bird MD [Primary Care Provider] - Within 1 Week Disposition Disposition (needs filled in before D/C Order can be placed): Home, Self Care Charges/Coding Visit Charges Inpatient E&M: 63281 Disch Hosp
[2022-04-29 10:47] VITALS: RESP 18; O2SAT 98
--- NOTE | 2022-04-29 10:55 | CASEMGMT ---
RN CM Face to Face with patient for initial transition planning/care coordination assessment. RN CM introduced self and role at [facility]. Patient lying in bed, alert and oriented, girlfriend at bedside. Patient willing to participate in assessment and is able to answer all questions appropriately. Care providers, pharmacy, and demographics verified. Patient wishes to discharge home, denies need for home health at this time. Patient states he has no further needs or concerns at this time. CM to follow for discharge planning needs that may arise. PCP: [facility] Specialists: none Preferred Pharmacy: [facility] Insurance: MMO Prescription Benefit: yes Living Will/HPOA: none LNOK: Father Living Arrangements: Patient lives with girlfriend in a 2 story house. Patient states he is independent and able to ambulate stairs. Transportation: self, girlfriend DME/HHC: Patient to has raised toilet, and crutches at home. Girlfriend states she is able to assist with dressing changes and was instructed by wound care. Disposition Plan: Patient to discharge home with family support and follow-up plans in place. Rachelle CHRISTINA, RN, CM
[2022-04-29 11:37] LABS: Vancomycin, Trough Level 18.1 ug/mL (5.0-15.0)
[2022-04-29 13:51] VITALS: BP 136/84; PULSE 54; RESP 16; TEMP 36.9; O2SAT 96
[2022-04-29 13:52] VITALS: BP 136/84; PULSE 54; RESP 18; TEMP 36.9; O2SAT 96
--- NOTE | 2022-04-30 14:26 | PCM.PN.BLA ---
Progress Note Attempted to notify about his blood culture results where he has 1 out of 4 tubes with MRSA.
== END 2022-04-29 16:12 | disposition home or self-care (01) | DRG 603 ==
LOC: ED 13:38 → MS3 04-29 08:38
PROVIDERS: Admitting Provider Family Medicine; Emergency Provider Emergency Medicine; PCP Orthopaedic Surgery; Visit Provider Family Medicine
DX: L03.115 Cellulitis of right lower limb (principal); Z86.14 Personal history of Methicillin resistant Staphylococcus aureus infection; L02.415 Cutaneous abscess of right lower limb
CPT/HCPCS: 10060; 36415; 73590; 80048; 80053; 80202; 83605; 85025; 85610; 85652; 85730; 86140; 87040; 87070; 87075; 87077; 87149; 87186; 87205; 96365; 96366; 96367; 96376; 99218; 99284; J7040; J7050; A4216; G0378

== ENCOUNTER 2023-05-16 22:03 | Outpatient (REF) | payer SELFPAY ==
[2023-05-16 22:04] VITALS: BP 189/119; PULSE 132; RESP 16; TEMP 36.7; O2SAT 99; BMI 38.3
--- NOTE | 2023-05-16 22:15 | CT_ITS ---
INDICATION: neck pain EXAMINATION: CT CERVICAL SPINE - CT Spine Cervical W/O Contrast Injection TECHNIQUE: Helically acquired images were obtained of the cervical spine. 2D reformatted images were reviewed. A radiation dose optimization technique was used for this scan. IV Contrast dosage and agent: None. RADIATION DOSAGE (If Supplied By Facility): CTDIvol = ( 23.29 ) mGy, DLP = ( 460.89 ) mGycm COMPARISON: No relevant prior comparison study available FINDINGS: VERTEBRAE: No fracture or traumatic subluxation. No discrete lytic or blastic abnormality. Normal alignment. Normal craniocervical junction and cervicothoracic junction. DISCS and SPINAL CANAL: Disc heights are preserved. Mild facet arthropathy on the right throughout the cervical spine. No critical stenosis. NECK SOFT TISSUES: No prevertebral soft tissue swelling. There is no cervical adenopathy. LUNG APICES: Clear. CT/Spine Cervical without Contras IMPRESSION: No evidence of acute cervical spinal fracture or spondylolisthesis. Electronically Signed: Earl Coreas MD at 22:40 EST ,
--- NOTE | 2023-05-16 22:15 | CT_ITS ---
INDICATION: head injury EXAMINATION: CT BRAIN - CT Head or Brain W/O Contrast Injection TECHNIQUE: Multiple axial images were obtained of the head without intravenous contrast. A radiation dose optimization technique was used for this scan. IV Contrast dosage and agent: None. RADIATION DOSAGE (If Supplied By Facility): CTDIvol = ( 44.99 ) mGy, DLP = ( 829.85 ) mGycm COMPARISON: No relevant prior comparison study available FINDINGS: BRAIN PARENCHYMA: No intra- or extra-axial hemorrhage. No evidence of acute infarct. No intracranial mass or mass effect. There is preservation of the landers/white matter interface. Posterior fossa structures are unremarkable. No parenchymal abnormality. CSF SPACES: No cerebral volume loss. No hydrocephalus. Basal cisterns are patent. CALVARIUM, SKULL BASE, PARANASAL SINUSES AND MASTOID AIR CELLS: The mastoid air cells and visualized paranasal sinuses are well aerated. Mild soft tissue swelling over the right occipital region. Additional swelling along the high right frontoparietal region. The calvarium is intact. No discrete lytic or blastic abnormalities. ORBITS: Both globes, extraocular muscles, optic nerves and retrobulbar fat appear unremarkable. CT/Brain/Head without Contrast IMPRESSION: No acute intracranial finding. Electronically Signed: Earl Coreas MD at 22:38 EST ,
[2023-05-16] MEDS: Lidocaine 2% /Epi 1:100 (20ml) 20 ML VIAL INFILT (22:50)
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
[2023-05-16 23:21] VITALS: BP 145/75; PULSE 87; RESP 16; O2SAT 97
== END 2023-05-16 23:23 ==
LOC: EDREF 22:03
PROVIDERS: PCP Orthopaedic Surgery; Visit Provider Emergency Medicine
DX: S01.01XA Laceration without foreign body of scalp, initial encounter (principal); W20.8XXA Other cause of strike by thrown, projected or falling object, initial encounter; Y92.009 Unspecified place in unspecified non-institutional (private) residence as the place of occurrence of the external cause; S00.03XA Contusion of scalp, initial encounter; Y04.0XXA Assault by unarmed brawl or fight, initial encounter; E66.9 Obesity, unspecified
CPT/HCPCS: 12002; 70450; 72125; 99285

== ENCOUNTER 2024-03-18 15:22 | Emergency (ER) | payer OTHER, SELFPAY ==
[2024-03-18 15:23] VITALS: BP 163/108; PULSE 88; RESP 16; TEMP 36.8; O2SAT 98; BMI 43.4
[2024-03-18 18:29] VITALS: BP 171/96; PULSE 75; O2SAT 98
--- NOTE | 2024-03-18 19:25 | ED.VIS.LOWEX ---
HPI History of Present Illness HPI Narrative: Patient presents with pain and swelling to his left leg that has been getting worse over the last 4 days. Patient states it is gradually getting worse. Patient describes the pain as burning and cramping. Patient states it is worse when he flexes his left hip and knee. Patient states nothing makes it better. Patient denies any paresthesias or weakness. Patient denies any trauma or injury. Patient denies any fevers or chills. Patient does admit to some shortness of breath with exertion. Patient denies any chest pain. Chief Complaint: Lower Extremity Injury Informant: patient Onset/Context/Timing Onset: Days (4) Context: Gradual Onset Timing: Continuous Quality of Pain: Burning and - (Cramping) Location: Left lower extremity Worsened by: Flexion of his hip and knee Relieved by: Nothing Associated Symptoms Associated Symptoms: Negative for Parasthesia, Weakness or Loss of Funtion [facility] Medical History (Updated 03/18/24 @ 20:[address] Torito Cole DO) Hypertension GI bleed Home Medications ?Medication ?Instructions ?Recorded ?Last Taken ?Type sulfamethoxazole 800 1 tab PO BID #20 tabs 01/10/21 04/28/22 Rx mg-trimethoprim 160 mg tablet (Bactrim DS) acetaminophen 325 mg tablet 650 mg PO Q4H PRN Pain 04/28/22 04/28/22 History (Tylenol) cephalexin 500 mg capsule 500 mg PO Q6H 04/28/22 04/28/22 History apixaban 5 mg tablet (Eliquis) 5 mg PO BID #74 tabs 03/18/24 Unknown Rx Allergy/AdvReac Type Severity Reaction Status Date / Time No Known Allergies Allergy Verified 03/18/24 15:23 Family History Mother Breast cancer Diabetes Father Diabetes Surgical History H/O hernia repair Social History Smoking Status: Never smoker alcohol intake: current alcohol intake frequency: a few times a month ROS ROS ED Constitutional Constitutional ED: Denies chills or fever(s) Eyes Eyes: Denies blurry vision or change in vision ENT ENT ED: Denies rhinorrhea or sore throat Cardiovascular Cardiovascular: Denies chest pain or palpitations Respiratory/Chest Respiratory/Chest: Reports dyspnea on exertion; Denies cough or dyspnea Gastrointestinal Gastrointestinal: Denies nausea or vomiting Genitourinary Genitourinary ED: Denies dysuria or hematuria Musculoskeletal Musculoskeletal: Denies back pain or neck pain Integumentary Denies abscess or rash Neurologic Neurologic: Denies headache(s) or weakness Allergic/Immunologic Allergic/Immunologic ED: Denies mouth swelling or urticaria EXAM Physical Exam Const Vital Signs: 03/18/24 15:23 03/18/24 18:29 03/18/24 20:00 Temperature 98.3 F Temperature Source Oral Pulse Rate 88 75 Respiratory Rate 16 Blood Pressure 163/108 H 171/96 H 174/94 H Blood Pressure Mean 126 121 120 Pulse Ox 98 98 Oxygen Delivery Method Room Air Room Air Positive well nourished and well developed General Appearance ED: well developed and NAD HEENT Reports moist mucous membranes Neck full ROM and supple Resp normal respiratory effort and clear to auscultation bilaterally Cardio regular rate and regular rhythm GI non-tender and non-distended Palpation: soft Extremity Extremity Narrative: There is tenderness, edema, and ecchymosis over the left lower extremity. There is no pain with dorsiflexion of the ankle. There is tenderness over the medial aspect of the left thigh. There is no deformity noted. Pedal pulses are equal bilaterally. Sensation was intact to light touch in the lower extremities bilaterally. Strength is 5/5 bilaterally in the lower extremities. Neuro oriented x3, CN's II-XII intact bilaterally, moves all extremities and no sensory deficits noted Sensorium / Orientation: alert Motor Exam: strength 5/5 throughout Psych mental status grossly normal MDM MDM MDM Narrative Medical decision making narrative: Differential diagnose includes muscle strain, DVT, and coagulopathy. Venous duplex of the left lower extremity will be obtained to assess for DVT. CBC will be obtained to assess for leukocytosis and anemia. Basic metabolic profile will be obtained to assess for electrolyte abnormality and renal function. PT with INR and PTT will be obtained to assess for coagulopathy. Lab Data Attestation: I reviewed the patient's lab results. Lab results narrative: CBC was reviewed. There is a mild leukocytosis of 12.1. The remainder is within normal limits. Basic metabolic profile was reviewed and was within normal limits. PT with INR and PTT were reviewed and were within normal limits. Labs: Laboratory Results - last 24 hr 03/18/24 19:56 WBC 12.1 H RBC 4.73 Hgb 13.7 Hct 41.2 MCV 87.1 MCH 29.0 MCHC 33.3 RDW Std Deviation 40.2 RDW Coeff of Zach 12.8 Plt Count 166 MPV 10.0 Immature Gran % (Auto) 0.700 Neut % (Auto) 71.2 H Lymph % (Auto) 18.1 L [place] % (Auto) 7.4 Eos % (Auto) 2.2 Baso % (Auto) 0.4 Absolute Neuts (auto) 8.6 H Absolute Lymphs (auto) 2.19 Nucleated RBC % 0 PT 14.1 INR 1.1 APTT 26.5 Sodium 139 Potassium 4.0 Chloride 106 Carbon Dioxide 28.0 Anion Gap 6 BUN 20 H Creatinine 1.14 Estim Creat Clear Calc 117.62 Est GFR (MDRD) Af Amer 89 Est GFR (MDRD) Non-Af 74 BUN/Creatinine Ratio 17.5 Glucose 99 Calcium 9.0 Radiography Diagnostic Testing: Venous duplex of the left lower extremity was obtained. There is a DVT from the proximal femoral vein to the popliteal vein behind the knee. Treatment and Re-Evaluation Narrative: Patient was advised of his findings. Patient was given a dose of Eliquis here. Patient was given a prescription for Eliquis. Patient was instructed to ice and elevate the left leg. Patient was instructed to follow-up with his primary care physician in 5 to 7 days. Patient understood and was agreeable with the plan. All questions were answered. Discharge Plan Triage Chief Complaint: Lower Extremity Injury Other Complaint: Numb/Ting ED Provider: Torito Cole Dx/Rx/DC Orders Clinical Impression: Acute deep vein thrombosis (DVT) of femoral vein of left lower extremity, Pain and swelling of left lower extremity, Hypertension Instructions: ED Deep Vein Thrombosis (DVT) Prescriptions: New Eliquis 5 mg tablet 5 mg PO BID Qty: 74 0RF Rx Instructions: 10 mg twice a day for the first week. Then 5 mg twice a day. No Action sulfamethoxazole-trimethoprim [Bactrim DS] 800-160 mg tablet 1 tab PO BID Qty: 20 0RF acetaminophen [Tylenol] 325 mg Tablet 650 mg PO Q4H PRN (Reason: Pain) cephalexin 500 mg capsule 500 mg PO Q6H Stand Alone Forms: ED Work / School Excuse Primary Care Provider: Chan Bird Referrals: Chan Bird MD [Primary Care Provider] - 5-7 Days Print Language: Armenian Disposition Disposition: Home, Self Care
--- NOTE | 2024-03-18 19:26 | US_ITS ---
We are attempting to reach an attending provider to discuss findings. An addendum with communication details will be sent when the communication is complete. STUDY: VENOUS DOPPLER ULTRASOUND - LEFT LOWER EXTREMITY REASON FOR EXAM: Male, 43 years old. LEFT LEG PAIN X 4 DAYS TECHNIQUE: Ultrasound evaluation of the deep vein system to include gomez-scale imaging and compression was performed. Gomez-scale imaging and Doppler sonographic evaluation, including duplex spectral analysis and qualitative color flow sonography, was performed. COMPARISON: None. FINDINGS: There is diffusely diminished compressibility and internal echoes consistent with deep venous thrombosis extending from the proximal superficial femoral to the popliteal veins. US/Venous Duplex Imag/Limited/Uni IMPRESSION: Extensive deep venous thrombosis of the left lower extremity Electronically Signed: Shoaib Milian MD at 21:12 EDT ,
[2024-03-18 20:00] VITALS: BP 174/94
[2024-03-18 20:07] LABS: Absolute Lymphocyte Count 2.19 X10^3/uL (0.83-4.51); Absolute Neutrophil Count 8.6 X10^3/uL (2.0-7.7); Basophil# 0.05 X10^3/uL; Basophil% 0.4 % (0-1); Eosinophil# 0.27 X10^3/uL; Eosinophils% 2.2 % (0-5); Hematocrit 41.2 % (40-54); Hemoglobin 13.7 g/dL (13.0-16.5); Lymphocyte # 2.19 X10^3/ul (0.83-4.51); Lymphocyte % 18.1 % (19-41); Mean Corp Hgb Conc 33.3 g/dL (32-36); Mean Corpuscular Volume 87.1 fL (80-94); Monocyte% 7.4 % (0-10); NRBC Flagged by Analyzer 0 % (0-5); Neutrophil % 71.2 % (47-70); Platelet Count 166 K/mm3 (150-450); RBC Distribution Width CV 12.8 % (11.6-14.6); RBC Distribution Width SD 40.2 fl (35.1-43.9); Red Blood Count 4.73 M/mm3 (4.6-6.2); White Blood Count 12.1 K/mm3 (4.4-11.0)
[2024-03-18 20:12] LABS: International Normalized Ratio 1.1; Partial Thromboplast Time 26.5 Seconds (24.1-36.2); Prothrombin Time (Protime)PT. 14.1 SECONDS (11.7-14.9)
[2024-03-18 20:14] LABS: Anion Gap 6 (5-15); BUN 20 mg/dL (7-18); BUN/Creat Ratio 17.5 RATIO (10-20); Chloride 106 mmol/L (98-107); Creatinine, Serum 1.14 mg/dL (0.70-1.30); EST Glomerular Filtration Rate 74 mL/min (>60); Est Glom Filt Rate - Afr Amer 89 mL/min (>60); Estimated Creatinine Clearance 117.62 ml/min; Glucose 99 mg/dL (74-106); Sodium Level 139 mmol/L (136-145)
[2024-03-18] MEDS: APIXABAN 5 MG TABLET 10 MG PO (20:55)
[2024-03-18 20:58] VITALS: BP 159/97; PULSE 98; RESP 18; TEMP 36.8; O2SAT 97
== END 2024-03-18 20:58 | disposition home or self-care (01) ==
PROVIDERS: Emergency Provider Emergency Medicine; PCP Orthopaedic Surgery; Visit Provider Emergency Medicine
DX: I82.412 Acute embolism and thrombosis of left femoral vein (principal); I10 Essential (primary) hypertension
CPT/HCPCS: 80048; 85025; 85610; 85730; 93971; 99284